=== PATIENT | female | born 1985 | race Caucasian/White ===

== ENCOUNTER 2017-02-04 13:04 | Emergency (ER) | payer SELFPAY ==
[2017-02-04 14:23] VITALS: BP 165/102
--- NOTE | 2017-02-04 14:56 | UC ---
UC General HPI - HPI Summary HPI Summary: The patient comes in today for: 1. Facial swelling: Onset: Yesterday. Palliative/provocative: Nothing makes her symptoms better or worse. Quality: No pain. Region: Right lower jaw area. Severity: 0/10 Time: Constant. Associated symptoms: Broken tooth: This is along the lower jaw. This was noticed several months ago. Fevers: None. Food, hot, cold liquids: None. * - History of Current Complaint Chief Complaint: UCDentalProblem Stated Complaint: SWOLLEN JAW Time Seen by Provider: 02/04/17 14:50 Hx Obtained From: Patient - Allergy/Home Medications Allergies/Adverse Reactions: Allergies Allergy/AdvReac Type Severity Reaction Status Date / Time Red Dye Allergy Anaphylatic Verified 02/04/17 14:24 Shock PMH/Surg Hx/FS Hx/Imm Hx Previously Healthy: Yes Endocrine History Of: Denies: Diabetes, Thyroid Disease, Hyperthyroidism, Hypothyroidism, Dyslipidemia Cardiovascular History Of: Denies: Cardiac Disorders, Hypertension, Pacemaker/ICD, Myocardial Infarction , Congestive Heart Failure, Atrial Fibrillation, Deep Vein Thrombosis, Bleeding Disorders Respiratory History Of: Denies: COPD, Asthma, Bronchitis, Pneumonia, Pulmonary Embolism GI/ History Of: Denies: Gastroesophageal Reflux, Ulcer, Gastrointestinal Bleed, Gall Bladder Disease, Kidney Stones, Diverticulitis, Renal Disease, Urosepsis Neurological History Of: Denies: TIA, CVA, Dementia, Seizures, Migraine Psychological History Of: Denies: Anxiety, Depression, Bipolar Disorder, Schizophrenia, Post Traumatic Stress Disorder Cancer History Of: Denies: Lung Cancer, Colorectal Cancer, Breast Cancer, Prostate Cancer, Cervical Cancer Other History Of: Negative For: HIV, Hepatitis B, Hepatitis C, Anticoagulant Therapy - Surgical History Surgical History: None - Family History Known Family History: Negative: Cardiac Disease, Hypertension - Social History Occupation: Employed Full-time Alcohol Use: Daily Alcohol Amount: 1 bottle of liquer per day Substance Use Type: Marijuana Smoking Status (MU): Former Smoker Review of Systems Constitutional: Negative Skin: Negative Eyes: Negative ENT: Negative Respiratory: Negative Cardiovascular: Negative Gastrointestinal: Negative Genitourinary: Negative All Other Systems Reviewed And Are Negative: Yes Physical Exam Triage Information Reviewed: Yes Appearance: Well-Appearing, No Pain Distress, Well-Nourished Vital Signs: Initial Vital Signs Temp 98.0 F 02/04/17 14:19 Pulse 87 02/04/17 14:19 Resp 20 02/04/17 14:19 BP 165/102 02/04/17 14:19 Pulse Ox 100 02/04/17 14:19 Vital Signs Reviewed: Yes Eyes: Positive: Conjunctiva Clear. Negative: Discharge ENT: Positive: Hearing grossly normal. Negative: Pharyngeal erythema, Nasal congestion, Nasal drainage, TM bulging, TM dull, TM red, Tonsillar swelling, Tonsillar exudate Dental: Positive: Dental Fracture @ - Tooth #4 has a posterior fracture. #3 tooth is missing (prevously pulled by patient reprot). Pressure along the gum/ jaw at base of the #4 tooth is tender to palpation. The flesh of the cheek is not sore. Neck: Positive: Supple, Nontender, No Lymphadenopathy. Negative: Nuchal Rigidity Respiratory: Positive: Chest non-tender, No respiratory distress, No accessory muscle use, Rhonchi - Scattered. Cardiovascular: Positive: RRR, No Murmur Abdomen Description: Positive: Nontender, No Organomegaly, Soft. Negative: Distended, Guarding Musculoskeletal: Positive: Strength Intact, ROM Intact, No Edema Neurological: Positive: Alert, Muscle Tone Normal Psychological: Positive: Age Appropriate Behavior, Consolable Skin: Negative: rashes, breakdown Course/Dx - Course Course Of Treatment: Patient told of her treatment options (NSAIDS and Pen VK). She was encouraged to see a dentist as soon as possible. - Differential Dx - Multi-Symptom Provider Diagnoses: High blood pressure. Right lower facial swelling secondary to pulpitis #4 tooth. Discharge - Discharge Plan Condition: Stable Disposition: HOME Patient Education Materials: Dental Abscess (ED) Forms: *Work Release Referrals: [facility] [place] PHYSICIAN REFERRAL [Outside] No Primary Care Phys,NOPCP [Primary Care Provider] - 1 Week (Please see your primary care provider in about a week to have your blood pressure checked. It was high in the office. If you don't have one, please contact the Physician Referral phone number. Until then, you can see us.) Additional Instructions: Please see a dentist as soon as you can. If you get worse, please be again by us, a dentist, the ER or your primary care provider.
== END 2017-02-04 15:25 | disposition home or self-care (01) ==
LOC: UCEAST 13:04
DX: K04.01 Reversible pulpitis (principal); F12.90 Cannabis use, unspecified, uncomplicated; I10 Essential (primary) hypertension; Z87.891 Personal history of nicotine dependence
CPT/HCPCS: 99212; G0463